=== PATIENT | male | born 1950 | race Caucasian/White ===

== ENCOUNTER → 2022-12-04 13:30 | Outpatient (BNVA) | payer MEDICARE, OTHER, SELFPAY | PROVIDERS: PCP Physician Assistant Medical; Visit Provider Dermatology | DX: L57.0 Actinic keratosis (principal); L82.1 Other seborrheic keratosis; L91.0 Hypertrophic scar; L81.4 Other melanin hyperpigmentation | CPT/HCPCS: 11102; 17000; 17003; 99213 ==